=== PATIENT | male | born 1985 | race Caucasian/White ===

== ENCOUNTER 2016-06-04 13:52 | Emergency (ER) | payer MEDICAID ==
[~2016-06-04 13:52] MED LIST: Lidocaine 1% 20 ML MDV ONE
--- NOTE | 2016-06-04 15:36 | PICIS ---
[facility] EMERGENCY RECORD TRIAGE (TueJun 04, 2016 14:04 SFRE) TRIAGE NOTES: LACERATION TO UPPER LIP. (TueJun 04, 2016 14:04 SFRE) PATIENT: PHONE: . (14:26) NAME: Jayme Robertson, AGE: 30, GENDER: male, : Tue1985, TIME OF GREET: TueJun 04, 2016 13:53, ECODE BILLING MAP: [facility], SSN: [id number], KG WEIGHT: 102.06, , , PERSON ID: [id number], PCP: [facility]. (TueJun 04, 2016 14:04 SFRE) Zip Code: [id number]. (14:31) COMPLAINT: CUT LIP. (TueJun 04, 2016 14:04 SFRE) ADMISSION: URGENCY: 3 Urgent, ADMISSION SOURCE: Home, TRANSPORT: Walk-in, BED: ED -01. 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 (14:06 SFRE) PAIN: Patient complains of pain described as, sharp, on a scale 0-10 patient rates pain as 5, Location UPPER LIP, Pain is constant, No aggravating factors, No relieving factors. (14:06 SFRE) IMMUNIZATIONS: Tetanus immunization up to date. (14:06 SFRE) SIRS SCORING: Heart Rate 55-109 (0), Temp range 96.8-101.1 (0), respiratory rate 12-24 (0), Mental Status altered: no (0). (14:06 SFRE) TRIAGE SCREENING: Patient denies suicidal ideation, Patient denies presence of domestic violence. (14:06 SFRE) PROVIDERS: TRIAGE NURSE: Maryam Delgadillo RN. (TueJun 04, 2016 14:04 SFRE) VITAL SIGNS: BP 126/89, Pulse 98, Resp 18, Pain 5, (Sharp), O2 Sat 98, on Room Air, Time 06/04/2016 14:03. (14:03 SFRE) KNOWN ALLERGIES No Known Drug Allergies CURRENT MEDICATIONS (14:04 SFRE) None VITAL SIGNS (14:03 SFRE) VITAL SIGNS: BP: 126/89, Pulse: 98, Resp: 18, Pain: 5 (Sharp), O2 sat: 98 on Room Air, Time: 06/04/2016 14:03. NURSING ASSESSMENT: SKIN TRAUMA (14:04 SFRE) CONSTITUTIONAL: Patient arrives ambulatory, Gait steady, History obtained from patient, Patient appears comfortable, Patient cooperative, Patient alert, Oriented to person, place and time, Skin warm, Skin dry, Skin normal in color, Mucous membranes pink, Mucous membranes moist, Patient is well-groomed, Patient complains of LAC TO UPPER LIP. MECHANISM OF INJURY: Mechanism of injury blunt trauma by, direct blow, GATE METAL. 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 SKIN: Skin assessment findings include skin warm, Skin dry, Skin normal in color, Inspection findings include laceration, to UPPER LIP RIGHT LATERAL, bleeding controlled, Inspection findings include signs of trauma, to UPPER LIP. SAFETY: Side rails up, Cart/Stretcher in lowest position, Family at bedside, Call light within reach, Hospital ID band on. NURSING PROCEDURE: DISCHARGE NOTE (15:26 SFRE) DISCHARGE: Patient discharged to home, ambulating without assistance, driving self, accompanied by //partner, Summary of Care printed/ provided, Patient requested and was provided an electronic copy of Discharge Instructions, Discharge instructions given to patient, Simple or moderate discharge teaching performed, by MITCHELL CATES, KEEP CLEAN AND DRY. CLEAN WITH SOAP AND WATER DAILY. MARIUSZ REMOVAL IN 5-7 DAYS. RETURN SOON IF YOU DEVELOP WORSENING SYMPTOMS., Above person(s) verbalized understanding of discharge instructions and follow-up care. NURSING PROCEDURE: WOUND CARE (15:19 ABUS) PATIENT IDENTIFIER: Patient actively involved in identification process, Patient's identity verified by hospital ID bracelet. TIMEOUT: Prior to procedure, correct patient verified by, Correct procedure verified, Correct site verified, Correct equipment utilized, Physician performing procedure Dr. Prince. WOUND CARE: Wound care indicated for wound debridement and cleansing, Wound care indicated for preparing wound for repair, Wound care indicated to promote healing, Wound site: Upper lip, Cause of wound: Blunt injury, Local infiltration with, 1% buffered lidocaine without epinephrine, 4 mL used, R infraorbital nerve block, Wound irrigated with 250 mL of normal saline, by Suresh, Wound cleansed with Betadine, Wound repaired with sutures, by Suresh, using 1 pack of suture, 5 simple interrupted sutures using 5.0 nylon. NOTES: Emotional support needed and given, Patient tolerated procedure well. ORDER DETAILS Order Name: chart element #1, Status: Active, Time: 15:19 06/04/2016, User: System, - Ordered for: MD Prince Anthony, - Entered by: MD Prince Anthony - TueJun 04, 2016 15:19, - Quantity: 1, Order Name: chart element #4, Status: Active, Time: 15:19 06/04/2016, User: System, - Ordered for: MD Prince Anthony, - Entered by: MD Prince Anthony - TueJun 04, 2016 15:19, - Quantity: 1. &a-1R&a+25V*p+0X*p1270B*c152B*c15G*c2P*p-0X&a-25V&a+1RName: Jayme Robertson : 1985 M30 MedRec: [id number] AcctNum: [id number] Prepared: TueJun 04, 2016 20:01 by Interface Page 2 of 5 pMD [facility] EMERGENCY RECORD HPI LACERATION (14:32 ABUS) CHIEF COMPLAINT: Patient presents for evaluation of laceration to lip, on the right, 0-1.5cm in length. HISTORIAN: History provided by patient, 30 yr old M here with cut to the Right lateral upper lip after a cow kicked the fence which then hit him in the lip. No LOC. MECHANISM OF INJURY: Known mechanism, Mechanism of injury: Blunt trauma. LOCATION: Symptoms are localized. QUALITY: Laceration quality straight. SEVERITY: Currently symptoms are mild, Current severity of pain rated as 5/10. TIME COURSE: Sudden onset of symptoms, just prior to arrival, There has been no change in the patient's symptoms over time. ASSOCIATED WITH: No associated symptoms. EXACERBATED BY: Patient's condition exacerbated by nothing. RELIEVED BY: Patient's condition relieved by nothing. TETANUS: Tetanus status up to date. ROS (14:34 ABUS) CONSTITUTIONAL: Negative constitutional review of systems, Historian denies chills, denies fever. ENT: Negative ears, nose, throat review of systems, Historian denies rhinorrhea, denies sore throat. CARDIOVASCULAR: Negative cardiovascular review of systems, Historian denies chest pain, denies palpitations. RESPIRATORY: Negative respiratory review of systems, Historian denies cough, denies shortness of breath. GI: Negative gastrointestinal review of systems, Historian denies abdominal pain, denies constipation, denies diarrhea, denies nausea, denies vomiting. MUSCULOSKELETAL: Negative musculoskeletal review of systems, Historian denies back pain, denies fall, denies injury, denies neck pain. SKIN: Negative skin review of systems, Historian denies rash, Historian denies skin changes. 0.5 cm laceration to the Right upper lip. No active bleeding. NEUROLOGIC: Negative neurologic review of systems, Historian denies headache. PAST MEDICAL HISTORY (14:06 SFRE) MEDICAL HISTORY: No past medical history. MALE SURGICAL HISTORY: Patient has no surgical history. PSYCHIATRIC HISTORY: No previous psychiatric history. SOCIAL HISTORY: Patient denies alcohol use, Patient denies drug use, Patient has no smoking history. PHYSICAL EXAM (14:34 ABUS) CONSTITUTIONAL: Vital signs reviewed, Patient afebrile, Pulse normal, Blood pressure normal, Respiratory rate normal, Patient appears non toxic, Patient appears pain free, Patient alert and oriented to person, place and time. &a-1R&a+25V*p+0X*c7105O*c152B*c15G*c2P*p-0X&a-25V&a+1RName: Jayme Robertson : 1985 M30 MedRec: [id number] AcctNum: [id number] Prepared: TueJun 04, 2016 20:01 by Interface Page 3 of 5 pMD [facility] EMERGENCY RECORD NECK: Neck exam normal, Neck exam included findings of normal range of motion, Trachea midline, no meningeal signs, no cervical adenopathy, no tenderness. RESPIRATORY CHEST: Respiratory and chest exam normal, Respiratory exam included findings of no respiratory distress, Breath sounds clear. ABDOMEN MALE: Abdominal exam included findings of abdomen nontender, Bowel sounds normal, no distension, no mass, no pulsatile masses, no peritoneal signs, no rigidity, no guarding, no rebound, Rovsing's sign absent. BACK: Back exam normal, Back exam included findings of normal inspection, range of motion normal, no tenderness. NEURO: Neuro exam normal, Neuro exam findings include patient oriented to person, place and time, Speech normal, Gait normal. SKIN: Skin exam included findings of skin warm, dry, and normal in color, no rash, 0.5 cm laceration to the Right upper lip. No active bleeding. EVENTS TRANSFER: Triage to Emergency Main ED -01. (TueJun 04, 2016 14:04 SFRE) Removed from Emergency Main ED -01. (15:29 SFRE) DOCTOR NOTES (14:35 ABUS) TEXT: 30 yr old M here with cut to the Right lateral upper lip after a cow kicked the fence which then hit him in the lip. Exam: 0.5 - 1 cm linear laceration to the right upper lip DX: laceration Plan: tetanus UTD. clean and irrigate with laceration repair. Wound care counseling provided and return precautions provided. D/C home with return precautions and RTC to have sutures taken out in 5-7 days. PROBLEM LIST No recorded problems DIAGNOSIS (15:21 ABUS) FINAL: PRIMARY: lip laceration. DISPOSITION PATIENT: Disposition Type: Discharge, Disposition: *Discharge Home, Condition: Good. (15:21 ABUS) Patient left the department. (15:29 SFRE) INSTRUCTION (15:23 ABUS) DISCHARGE: LACERATION, LIP/MOUTH. FOLLOWUP: [facility], /[facility], [address] [place] [id number], , Follow up with Primary Care Physician in 5 days. SPECIAL: As discussed in the ER before you left, please follow up with your primary care doctor or call the referral made for you &a-1R&a+25V*p+0X*[id number]*c152B*c15G*c2P*p-0X&a-25V&a+1RName: Jayme Robertson : 1985 M30 MedRec: [id number] AcctNum: [id number] Prepared: TueJun 04, 2016 20:01 by Interface Page 4 of 5 pMD [facility] EMERGENCY RECORD here in the ED today to establish outpatient follow up for your medical care. Please come back sooner if you start to develop fever, worsening pain, swelling, or symptoms that are new or symptoms the concern you. As discussed in the ED, please clean the wound daily with mild soap and water, pat dry and keep clean. Come back in 5-7 to have sutures removed. PRESCRIPTION No recorded prescriptions IMAGING *DISCHARGE INSTRUCTIONS RECEIPT: Image captured from scanner. (15:27 SFRE) *SUPPLY CHARGE SHEET: Image captured from scanner. (15:41 SFRE) ADMIN DIGITAL SIGNATURE: MITCHELL Delgadillo Stacey. (15:29 SFRE) MD Prince Anthony. (19:47 ABUS) Calderón: ABUS=MD Prince Anthony SFRE=MITCHELL Delgadillo Stacey &a-1R&a+25V*p+0X*y5901A*c152B*c15G*c2P*p-0X&a-25V&a+1RName: Jayme Robertson : 1985 M30 MedRec: [id number] AcctNum: [id number] Prepared: TueJun 04, 2016 20:01 by Interface Page 5 of 5 pMD MTDD
== END 2016-06-04 15:25 | disposition home or self-care (01) ==
LOC: MADERS 13:52
DX: S01.511A Laceration without foreign body of lip, initial encounter (principal); W45.8XXA Other foreign body or object entering through skin, initial encounter
CPT/HCPCS: 99282; J2001

== ENCOUNTER 2017-09-19 12:23 | Emergency (ER) | payer MEDICAID, OTHER, SELFPAY ==
[2017-09-19] MEDS ORDERED: HYDROcodone/Acetaminophen 5/325 mg Tablet ONE (13:02)
[2017-09-19] MEDS ORDERED: Cephalexin 500 MG CAP ONE (13:02)
[2017-09-19] MEDS ORDERED: Ibuprofen 800 MG TAB ONE (13:05)
--- NOTE | 2017-09-19 14:21 | RAD ---
CHEST ONE VIEW: History: Injury. Pain. Comparison: None. FINDINGS: Normal cardiac silhouette. The lungs and pleural spaces are clear. No pneumothorax or osseous abnorma lity. IMPRESSION: No acute cardiopulmonary process. POS: RICOH
== END 2017-09-19 13:17 | disposition home or self-care (01) ==
LOC: MADERS 12:23
DX: S21.131A Puncture wound without foreign body of right front wall of thorax without penetration into thoracic cavity, initial encounter (principal); I10 Essential (primary) hypertension; Z79.899 Other long term (current) drug therapy; W26.8XXA Contact with other sharp object(s), not elsewhere classified, initial encounter
CPT/HCPCS: 71045